=== PATIENT | female | born 1960 | race African-American/Black ===

== ENCOUNTER 2017-03-28 11:09 | Day surgery (SDC) | payer MEDICARE, MEDICAID ==
[2017-03-28] MEDS ORDERED: Nivolumab 200 MG, Nivolumab 40 MG, Admixture Fee 1 EACH in Sodium Chloride 0.9% 250 ML ... IVPB SCH (11:15)
[2017-03-28] MEDS ORDERED: Sodium Chloride 0.9% 20 ML ONE (12:12)
== END 2017-03-28 13:09 | disposition home or self-care (01) ==
LOC: ONC/OP 11:09
PROVIDERS: ATTEND Internal Medicine Hematology & Oncology
DX: Z51.11 Encounter for antineoplastic chemotherapy (principal); C34.11 Malignant neoplasm of upper lobe, right bronchus or lung; R10.31 Right lower quadrant pain; G89.29 Other chronic pain; J44.9 Chronic obstructive pulmonary disease, unspecified; Z79.52 Long term (current) use of systemic steroids; Z79.899 Other long term (current) drug therapy; Z92.3 Personal history of irradiation; Z87.891 Personal history of nicotine dependence; Z80.3 Family history of malignant neoplasm of breast; Z80.51 Family history of malignant neoplasm of kidney
CPT/HCPCS: 96413; A4216; J1642; J7050; J9299

== ENCOUNTER 2017-04-11 09:44 | Day surgery (SDC) | payer MEDICARE, MEDICAID ==
[2017-04-11] MEDS ORDERED: NIVOLUMAB IVPB SCH (10:30)
[2017-04-11] MEDS ORDERED: SODIUM CHLORIDE 0.9% IVPB SCH (10:30)
[2017-04-11] MEDS ORDERED: Sodium Chloride 0.9% 20 ML ONE (11:32)
[2017-04-11 11:35] VITALS: BP 121/58; TEMP 98.2
== END 2017-04-11 12:20 | disposition home or self-care (01) ==
LOC: ONC/OP 09:44
PROVIDERS: ATTEND Internal Medicine Hematology & Oncology
DX: Z51.11 Encounter for antineoplastic chemotherapy (principal); C34.11 Malignant neoplasm of upper lobe, right bronchus or lung; J44.9 Chronic obstructive pulmonary disease, unspecified; Z79.52 Long term (current) use of systemic steroids; Z79.899 Other long term (current) drug therapy; Z90.49 Acquired absence of other specified parts of digestive tract; Z98.890 Other specified postprocedural states; Z87.891 Personal history of nicotine dependence; Z92.3 Personal history of irradiation; Z80.51 Family history of malignant neoplasm of kidney; Z80.3 Family history of malignant neoplasm of breast
CPT/HCPCS: 96413; A4216; J1642; J7050; J9299

== ENCOUNTER 2017-05-07 08:45 | Outpatient (CLI) | payer MEDICARE, MEDICAID ==
--- NOTE | 2017-05-07 11:34 | CT ---
CT OF ABDOMEN AND PELVIS PERFORMED WITH INTRAVENOUS CONTRAST ENHANCEMENT: History: Lung cancer with brain metastases, also evidence of abdominal and pelvic lymphadenopathy. Comparison: 11-30-16, 09-11-16, 05-11-16 CTs. FINDINGS: Lung bases show chronic lung change ground glass opacity in both lung salazar with changes which may also represent air trapping are noted. There is a pleural based nodular density measuring 12 mm in s ize in the right lung base which is felt to be stable as compared to a prior exam. A small hiatal he rnia is present. The liver and spleen show no focal abnormalities. An area of decreased attenuation adjacent to the f alciform ligament, most likely on the basis of fatty change and has been seen on the previous exams as stable. In addition, there is a focus of decreased attenuation within the right lobe of the liver seen on axial image 36 and coronal image 58, measuring approximately 2.1 cm in size. It is slightly more prominent than on the previous exams although in retrospect it has been subtly present on the previous studies dating back to 05-11-16. The pancreas region is unremarkable and the gallbladder kelly s been removed. Right and left adrenal glands are normal in size and appearance. Hypodensity involving the right kid dani is stable and most compatible with a cyst. Small 5 mm retrocrural node is stable. There is a definite improvement in the aortocaval lymphadenop athy. An aortocaval node that measured in the 19 mm range on the previous examination now measures o nly 7 mm in size. There are small subcentimeter left periaortic lymph nodes. CT OF PELVIS PERFORMED WITH INTRAVENOUS CONTRAST ENHANCEMENT: The right external iliac chain lymphadenopathy seen on axial image 68 is also improved. It measures 7-8 mm in short axis dimension as compared to 13 mm on the previous study. There is a lymph node inv olving the junction of the left external and obturator chains seen on axial Image 73. It measures ap proximately 12 mm in short axis dimension as compared to 8-9 mm on the previous exam. There is no si gnificant inguinal lymphadenopathy. Review of osseous structures show no lytic or blastic bony change. IMPRESSION: 1. Overall improvement to some of the adenopathy. There has been a significant decrease in size of t he aortocaval and right external iliac chain nodes as discussed above. There is a node which is loca davey near the junction of the left obturator and external iliac chains which has increased slightly i n size from approximately 8-12 mm. 2. Chronic lung changes. A pleural based density along the right hemidiaphragm is stable in size. 3. Focus of decreased attenuation in the inferior aspect of the right lobe of the liver measuring 2. 1 cm in size. In retrospect, this area has probably been present on the previous examinations. It is more subtle on the previous exams but no definitely changed in size. POS: [facility]
[2017-05-07] MEDS ORDERED: Iopamidol 370 76% 100 ML VIAL ONE (14:17)
== END 2017-05-07 08:46 | disposition home or self-care (01) ==
LOC: CT 08:45
PROVIDERS: ATTEND Internal Medicine Hematology & Oncology
DX: C34.11 Malignant neoplasm of upper lobe, right bronchus or lung (principal); R59.0 Localized enlarged lymph nodes; J94.8 Other specified pleural conditions
CPT/HCPCS: 74177

== ENCOUNTER 2017-05-09 09:25 | Day surgery (SDC) | payer MEDICARE, MEDICAID ==
[~2017-05-09 09:25] MED LIST: Sodium Chloride 0.9% 30 ML ONE
[2017-05-09] MEDS ORDERED: NIVOLUMAB IVPB SCH (09:30)
[2017-05-09] MEDS ORDERED: SODIUM CHLORIDE 0.9% IVPB SCH (09:30)
[2017-05-09 09:43] VITALS: BP 128/59
[2017-05-09 10:02] LABS: Hematocrit 40.3 % (36.0-47.0); Mean Platelet Volume 8.3 fL (7.4-10.4); Red Blood Cell (RBC) Count 4.56 mill/uL (4.20-5.40); White Blood Cell (WBC) Count 4.9 thou/uL (4.8-10.8)
[2017-05-09 10:03] LABS: #Lymphocytes 1.2 thou/uL (1.20-3.40); #Monocytes 0.3 thou/uL (0.11-0.59); #Neutrophils 3.3 thou/uL (1.40-6.50); %Basophils 0.1 % (0.0-1.0); %Eosinophils 0.9 % (0.0-10.0); %Lymphocytes 24.8 % (21.0-51.0); %Monocytes 6.5 % (0.0-10.0)
[2017-05-09 11:53] LABS: ALT (SGPT) 8 U/L (8-55); AST (SGOT) 11 U/L (5-34); Alkaline Phosphatase 165 U/L (40-150); Anion Gap 14 mmol/L (10-20); BUN (Urea Nitrogen) 11 mg/dL (9.8-20.1); Bilirubin, Total 0.2 mg/dL (0.2-1.2); Calc. Creatinine Clearance 129 mL/min (70-130); Calcium 9.6 mg/dL (7.8-10.44); Carbon Dioxide 23 mmol/L (22-29); Chloride 103 mmol/L (98-107); Estimated GFR-MDRD Greater than 90; Globulin 4.1 g/dL (2.4-3.5); Uric Acid 6.7 mg/dL (2.6-6.0)
[2017-05-09 15:00] LABS: T4 8.7 ug/dL (4.87-11.72)
== END 2017-05-09 11:51 | disposition home or self-care (01) ==
LOC: ONC/OP 09:25
PROVIDERS: ATTEND Internal Medicine Hematology & Oncology
DX: Z51.11 Encounter for antineoplastic chemotherapy (principal); C34.11 Malignant neoplasm of upper lobe, right bronchus or lung; J44.9 Chronic obstructive pulmonary disease, unspecified; Z79.899 Other long term (current) drug therapy; Z90.49 Acquired absence of other specified parts of digestive tract; Z98.891 History of uterine scar from previous surgery; Z87.891 Personal history of nicotine dependence; Z80.3 Family history of malignant neoplasm of breast; Z80.51 Family history of malignant neoplasm of kidney
CPT/HCPCS: 80053; 84436; 84443; 84550; 85025; 96413; A4216; J1642; J7050; J9299

== ENCOUNTER 2017-05-23 10:30 | Day surgery (SDC) | payer MEDICARE, MEDICAID ==
[2017-05-23] MEDS ORDERED: Sodium Chloride 0.9% 20 ML ONE (10:49)
[2017-05-23 10:57] VITALS: BP 115/58; TEMP 98
[2017-05-23] MEDS ORDERED: Nivolumab 200 MG, Nivolumab 40 MG, Admixture Fee 1 EACH in Sodium Chloride 0.9% 250 ML ... IVPB SCH (11:00)
== END 2017-05-23 12:45 | disposition home or self-care (01) ==
LOC: ONC/OP 10:30
PROVIDERS: ATTEND Internal Medicine Hematology & Oncology
DX: Z51.11 Encounter for antineoplastic chemotherapy (principal); C34.11 Malignant neoplasm of upper lobe, right bronchus or lung; C79.31 Secondary malignant neoplasm of brain; J44.9 Chronic obstructive pulmonary disease, unspecified; Z79.52 Long term (current) use of systemic steroids; Z79.899 Other long term (current) drug therapy; Z90.49 Acquired absence of other specified parts of digestive tract; Z98.890 Other specified postprocedural states; Z92.3 Personal history of irradiation; Z87.891 Personal history of nicotine dependence
CPT/HCPCS: 96413; A4216; J1642; J7050; J9299

== ENCOUNTER 2017-06-06 07:36 | Day surgery (SDC) | payer MEDICARE, MEDICAID ==
[2017-06-06] MEDS ORDERED: Sodium Chloride 0.9% 30 ML ONE (07:42)
[2017-06-06] MEDS ORDERED: Nivolumab 200 MG, Nivolumab 40 MG, Admixture Fee 1 EACH in Sodium Chloride 0.9% 250 ML ... IVPB SCH (09:00)
[2017-06-06 09:13] VITALS: BP 135/83; TEMP 97
--- NOTE | 2017-06-06 12:18 | MRI ---
MRI BRAIN WITH AND WITHOUT IV CONTRAST: COMPARISON: 02/11/17. CLINICAL HISTORY: Brain metastases. History of lung malignancy. FINDINGS: Redemonstration of an area of encephalomalacia with gliosis and cavitation at the right frontal lobe. Overlying craniotomy is again seen as well as postoperative susceptibility artifact. Minute scatte red foci of FLAIR hyperintensity may be on the basis of minimal chronic microvascular ischemic diseas e and are grossly stable. No evidence of an enhancing intraaxial mass. Mild cerebellar tonsillar ec topia is present. Exam is grossly stable to 02/11/17 exam. IMPRESSION: Stable postoperative right frontal region. No new, interval intracranial hemostasis are present. POS: [facility]
[2017-06-06] MEDS ORDERED: Gadobenate Dimeglumine 529 MG/1 ML (20ML VIAL) ONE (14:07)
== END 2017-06-06 12:05 | disposition home or self-care (01) ==
LOC: ONC/OP 07:36
PROVIDERS: ATTEND Internal Medicine Hematology & Oncology
DX: Z51.11 Encounter for antineoplastic chemotherapy (principal); C34.11 Malignant neoplasm of upper lobe, right bronchus or lung; C79.31 Secondary malignant neoplasm of brain; J44.9 Chronic obstructive pulmonary disease, unspecified; Z79.52 Long term (current) use of systemic steroids; Z79.899 Other long term (current) drug therapy; Z95.828 Presence of other vascular implants and grafts; Z90.49 Acquired absence of other specified parts of digestive tract; Z98.890 Other specified postprocedural states; Z92.3 Personal history of irradiation; Z87.891 Personal history of nicotine dependence; Z80.51 Family history of malignant neoplasm of kidney; Z80.3 Family history of malignant neoplasm of breast
CPT/HCPCS: 70553; 96413; A4216; A9579; J1642; J7050; J9299

== ENCOUNTER 2017-06-13 00:01 | Emergency (ER) | payer MEDICARE, OTHER ==
[2017-06-13] MEDS ORDERED: Oseltamivir 75 MG CAP PO SCH (01:30)
[2017-06-13] MEDS ORDERED: Ibuprofen 800 MG TAB ONE (01:50)
[2017-06-13 02:01] LABS: #Lymphocytes 0.7 thou/uL (1.20-3.40); #Monocytes 0.6 thou/uL (0.11-0.59); #Neutrophils 4.3 thou/uL (1.40-6.50); %Basophils 0.1 % (0.0-1.0); %Eosinophils 0.6 % (0.0-10.0); %Lymphocytes 11.7 % (21.0-51.0); %Monocytes 10.6 % (0.0-10.0); Hematocrit 38.3 % (36.0-47.0); Mean Platelet Volume 8.2 fL (7.4-10.4); Red Blood Cell (RBC) Count 4.37 mill/uL (4.20-5.40); White Blood Cell (WBC) Count 5.6 thou/uL (4.8-10.8)
[2017-06-13 02:18] LABS: Lactic Acid - Sepsis 0.8 mmol/L (0.5-2.2)
[2017-06-13 02:22] LABS: ALT (SGPT) 16 U/L (8-55); AST (SGOT) 16 U/L (5-34); Alkaline Phosphatase 127 U/L (40-150); Anion Gap 12 mmol/L (10-20); BUN (Urea Nitrogen) 12 mg/dL (9.8-20.1); Bilirubin, Total 0.5 mg/dL (0.2-1.2); Calc. Creatinine Clearance 0 mL/min (70-130); Calcium 9.8 mg/dL (7.8-10.44); Carbon Dioxide 24 mmol/L (22-29); Chloride 97 mmol/L (98-107); Estimated GFR-MDRD Greater than 90; Globulin 3.8 g/dL (2.4-3.5); Protein, Total 7.8 g/dL (6.0-8.3)
[2017-06-13] MEDS ORDERED: Acetaminophen 500 MG TAB ONE (03:18)
--- NOTE | 2017-06-13 07:43 | RAD ---
PA AND LATERAL VIEWS CHEST: Date: 06/13/17 HISTORY: Productive cough and wheezing. FINDINGS/IMPRESSION: Comparison made with exam dated 10/11/11. There is a right-sided Port-A-Cath tip in the projection of the SVC. The heart size is normal. The anna marie ngs are well expanded with diffuse mild interstitial infiltrates versus pulmonary vascular congestion . No lobar consolidation, pneumothorax, or pleural effusions are seen. POS: [facility]
== END 2017-06-13 03:54 | disposition home or self-care (01) ==
LOC: ERS 00:01
DX: J11.1 Influenza due to unidentified influenza virus with other respiratory manifestations (principal); E86.0 Dehydration; Z79.891 Long term (current) use of opiate analgesic
CPT/HCPCS: 36415; 71020; 80053; 83605; 85025; 93005; 96360

== ENCOUNTER 2017-07-04 09:16 | Day surgery (SDC) | payer MEDICARE, MEDICAID ==
[2017-07-04] MEDS ORDERED: Sodium Chloride 0.9% 30 ML ONE (09:28)
[2017-07-04] MEDS ORDERED: Sterile Water 10 ML VIAL IVP SCH (09:45)
[2017-07-04] MEDS ORDERED: Activase 2 MG VIAL CATH SCH (09:45)
[2017-07-04] MEDS ORDERED: NIVOLUMAB IVPB SCH (09:45)
[2017-07-04] MEDS ORDERED: SODIUM CHLORIDE 0.9% IVPB SCH (09:45)
[2017-07-04] MEDS ORDERED: HYDROcodone/Acetaminophen 10/325 mg Tablet PO SCH (10:00)
[2017-07-04 10:13] VITALS: BP 115/55; TEMP 98.4
[2017-07-04 11:17] LABS: #Eosinphils 0.1 thou/uL (0.0-0.7); #Lymphocytes 1.2 thou/uL (1.20-3.40); #Monocytes 0.3 thou/uL (0.11-0.59); #Neutrophils 2.6 thou/uL (1.40-6.50); %Basophils 0.3 % (0.0-1.0); %Eosinophils 1.4 % (0.0-10.0); %Lymphocytes 27.9 % (21.0-51.0); %Monocytes 7.2 % (0.0-10.0); %Neutrophils 63.3 % (42.0-75.0); Hemoglobin 11.7 g/dL (12.0-16.0); Mean Corpuscular HGB CONC 31.2 g/dL (32.0-36.0); Mean Corpuscular Hemoglobin 27.7 pg (27.0-31.0); Mean Corpuscular Volume 88.9 fl (81.0-99.0); Mean Platelet Volume 7.8 fL (7.4-10.4); Platelet Count 237 thou/uL (130-400); RBC Distribution Width 15.8 % (11.5-14.5); Red Blood Cell (RBC) Count 4.21 mill/uL (4.20-5.40); White Blood Cell (WBC) Count 4.1 thou/uL (4.8-10.8)
[2017-07-04 11:44] LABS: Anisocytosis SLIGHT = 6-15 cells (100X) (0-5/hpf)
[2017-07-04 11:45] LABS: PLT Morphology Comment Appears Adequate
[2017-07-04 11:53] LABS: ALT (SGPT) 10 U/L (8-55); AST (SGOT) 11 U/L (5-34); Albumin 3.8 g/dL (3.5-5.0); Alkaline Phosphatase 136 U/L (40-150); Anion Gap 14 mmol/L (10-20); BUN (Urea Nitrogen) 19 mg/dL (9.8-20.1); Bilirubin, Total 0.3 mg/dL (0.2-1.2); Calc. Creatinine Clearance 108 mL/min (70-130); Calcium 9.8 mg/dL (7.8-10.44); Carbon Dioxide 23 mmol/L (22-29); Chloride 106 mmol/L (98-107); Estimated GFR-MDRD Greater than 90; Glucose 128 mg/dL (70-105); Potassium 3.8 mmol/L (3.5-5.1); Protein, Total 7.8 g/dL (6.0-8.3); Sodium 139 mmol/L (136-145); Uric Acid 7.7 mg/dL (2.6-6.0)
[2017-07-04 12:07] LABS: T4 9.2 ug/dL (4.87-11.72); Thyroid Stimulating Hormone 1.5738 uIU/mL (0.35-4.94)
== END 2017-07-04 11:51 | disposition home or self-care (01) ==
LOC: ONC/OP 09:16
PROVIDERS: ATTEND Internal Medicine Hematology & Oncology
DX: Z51.11 Encounter for antineoplastic chemotherapy (principal); C34.11 Malignant neoplasm of upper lobe, right bronchus or lung; J44.9 Chronic obstructive pulmonary disease, unspecified; Z79.899 Other long term (current) drug therapy; Z80.1 Family history of malignant neoplasm of trachea, bronchus and lung; Z80.3 Family history of malignant neoplasm of breast; Z80.51 Family history of malignant neoplasm of kidney; Z90.49 Acquired absence of other specified parts of digestive tract; Z98.890 Other specified postprocedural states
CPT/HCPCS: 80053; 84436; 84443; 84550; 85025; 96375; 96413; A4216; J1642; J2997; J7050; J9299

== ENCOUNTER 2017-07-25 09:37 | Day surgery (SDC) | payer MEDICARE, MEDICAID ==
[2017-07-25] MEDS ORDERED: Sodium Chloride 0.9% 20 ML ONE (09:48)
[2017-07-25] MEDS ORDERED: SODIUM CHLORIDE 0.9% IVPB SCH (10:00)
[2017-07-25] MEDS ORDERED: NIVOLUMAB IVPB SCH (10:00)
[2017-07-25 10:03] VITALS: BP 130/62; TEMP 99
== END 2017-07-25 13:49 | disposition home or self-care (01) ==
LOC: ONC/OP 09:37
PROVIDERS: ATTEND Internal Medicine Hematology & Oncology
DX: Z51.11 Encounter for antineoplastic chemotherapy (principal); C34.11 Malignant neoplasm of upper lobe, right bronchus or lung; J44.9 Chronic obstructive pulmonary disease, unspecified; Z87.891 Personal history of nicotine dependence; Z80.1 Family history of malignant neoplasm of trachea, bronchus and lung; Z80.3 Family history of malignant neoplasm of breast; Z80.51 Family history of malignant neoplasm of kidney; Z90.49 Acquired absence of other specified parts of digestive tract; Z98.890 Other specified postprocedural states
CPT/HCPCS: 96413; A4216; J1642; J7050; J9299

== ENCOUNTER 2017-08-08 08:41 | Day surgery (SDC) | payer MEDICARE, MEDICAID ==
[2017-08-08] MEDS ORDERED: Nivolumab 200 MG, Nivolumab 40 MG, Admixture Fee 1 EACH in Sodium Chloride 0.9% 250 ML ... IVPB SCH (09:00)
[2017-08-08] MEDS ORDERED: Sodium Chloride 0.9% 20 ML ONE (09:02)
[2017-08-08 10:11] VITALS: BP 131/58; TEMP 98.3
== END 2017-08-08 11:25 | disposition home or self-care (01) ==
LOC: ONC/OP 08:41
PROVIDERS: ATTEND Internal Medicine Hematology & Oncology
DX: Z51.11 Encounter for antineoplastic chemotherapy (principal); C34.11 Malignant neoplasm of upper lobe, right bronchus or lung; J44.9 Chronic obstructive pulmonary disease, unspecified; Z90.49 Acquired absence of other specified parts of digestive tract; Z98.891 History of uterine scar from previous surgery; Z80.1 Family history of malignant neoplasm of trachea, bronchus and lung; Z80.3 Family history of malignant neoplasm of breast; Z80.51 Family history of malignant neoplasm of kidney; Z87.891 Personal history of nicotine dependence
CPT/HCPCS: 96413; J1642; J7050; J9299

== ENCOUNTER 2017-09-05 09:42 | Day surgery (SDC) | payer MEDICARE, MEDICAID ==
[2017-09-05 10:09] LABS: #Eosinphils 0.1 thou/uL (0.0-0.7); #Lymphocytes 1.3 thou/uL (1.20-3.40); #Monocytes 0.3 thou/uL (0.11-0.59); #Neutrophils 2.5 thou/uL (1.40-6.50); %Basophils 0.1 % (0.0-1.0); %Eosinophils 1.3 % (0.0-10.0); %Lymphocytes 31.9 % (21.0-51.0); %Neutrophils 59.7 % (42.0-75.0); Hemoglobin 12.2 g/dL (12.0-16.0); Mean Corpuscular HGB CONC 31.1 g/dL (32.0-36.0); Mean Corpuscular Hemoglobin 27.3 pg (27.0-31.0); Mean Corpuscular Volume 87.8 fl (81.0-99.0); Mean Platelet Volume 8.2 fL (7.4-10.4); Platelet Count 204 thou/uL (130-400); RBC Distribution Width 15.9 % (11.5-14.5); Red Blood Cell (RBC) Count 4.46 mill/uL (4.20-5.40); White Blood Cell (WBC) Count 4.1 thou/uL (4.8-10.8)
[2017-09-05] MEDS ORDERED: ADMIXTURE FEE IVPB SCH (10:15)
[2017-09-05] MEDS ORDERED: SODIUM CHLORIDE IVPB SCH (10:15)
[2017-09-05] MEDS ORDERED: NIVOLUMAB IVPB SCH (10:15)
[2017-09-05] MEDS ORDERED: Sodium Chloride 0.9% 20 ML ONE (10:31)
[2017-09-05 10:50] LABS: T4 8.3 ug/dL (4.87-11.72); Thyroid Stimulating Hormone 1.8883 uIU/mL (0.35-4.94)
[2017-09-05 10:54] LABS: ALT (SGPT) 11 U/L (8-55); AST (SGOT) 11 U/L (5-34); Alkaline Phosphatase 131 U/L (40-150); Anion Gap 12 mmol/L (10-20); BUN (Urea Nitrogen) 16 mg/dL (9.8-20.1); Bilirubin, Total 0.2 mg/dL (0.2-1.2); Calc. Creatinine Clearance 123 mL/min (70-130); Calcium 9.7 mg/dL (7.8-10.44); Carbon Dioxide 26 mmol/L (22-29); Chloride 103 mmol/L (98-107); Estimated GFR-MDRD Greater than 90; Globulin 3.7 g/dL (2.4-3.5); Glucose 113 mg/dL (70-105); LDH 166 U/L (125-220); Potassium 3.8 mmol/L (3.5-5.1); Protein, Total 7.7 g/dL (6.0-8.3); Sodium 137 mmol/L (136-145); Uric Acid 6.2 mg/dL (2.6-6.0)
== END 2017-09-05 13:12 | disposition home or self-care (01) ==
LOC: ONC/OP 09:42
PROVIDERS: ATTEND Internal Medicine Hematology & Oncology
DX: Z51.11 Encounter for antineoplastic chemotherapy (principal); C34.11 Malignant neoplasm of upper lobe, right bronchus or lung; J44.9 Chronic obstructive pulmonary disease, unspecified; Z85.841 Personal history of malignant neoplasm of brain; Z87.891 Personal history of nicotine dependence; Z92.21 Personal history of antineoplastic chemotherapy; Z92.3 Personal history of irradiation
CPT/HCPCS: 80053; 83615; 84436; 84443; 84550; 85025; 96413; A4216; C9299; J1642; J7050

== ENCOUNTER 2017-09-23 07:40 | Outpatient (CLI) | payer MEDICARE, MEDICAID ==
[2017-09-23] MEDS ORDERED: Iopamidol 370 76% 100 ML VIAL ONE (09:26)
== END 2017-09-23 07:41 | disposition home or self-care (01) ==
LOC: BICCT 07:40
PROVIDERS: ATTEND Internal Medicine Hematology & Oncology
DX: C34.11 Malignant neoplasm of upper lobe, right bronchus or lung (principal); N28.1 Cyst of kidney, acquired; K76.0 Fatty (change of) liver, not elsewhere classified; R59.0 Localized enlarged lymph nodes
CPT/HCPCS: 74177

== ENCOUNTER 2017-10-03 09:34 | Day surgery (SDC) | payer MEDICARE, MEDICAID ==
[2017-10-03] MEDS ORDERED: Sodium Chloride 0.9% 20 ML ONE (09:42)
[2017-10-03 09:58] VITALS: BP 113/53; TEMP 98.4
[2017-10-03] MEDS ORDERED: ADMIXTURE FEE IVPB SCH (10:00)
[2017-10-03] MEDS ORDERED: SODIUM CHLORIDE IVPB SCH (10:00)
[2017-10-03] MEDS ORDERED: NIVOLUMAB IVPB SCH (10:00)
== END 2017-10-03 12:42 | disposition home or self-care (01) ==
LOC: ONC/OP 09:34
PROVIDERS: ATTEND Internal Medicine Hematology & Oncology
DX: Z51.11 Encounter for antineoplastic chemotherapy (principal); C34.11 Malignant neoplasm of upper lobe, right bronchus or lung; J44.9 Chronic obstructive pulmonary disease, unspecified; Z98.890 Other specified postprocedural states; Z80.3 Family history of malignant neoplasm of breast; Z80.51 Family history of malignant neoplasm of kidney
CPT/HCPCS: 96413; A4216; J1642; J7050; J9299

== ENCOUNTER 2017-10-17 10:02 | Day surgery (SDC) | payer MEDICARE, MEDICAID ==
[2017-10-17] MEDS ORDERED: Sodium Chloride 0.9% 20 ML ONE (10:55)
[2017-10-17] MEDS ORDERED: ADMIXTURE FEE IVPB SCH (11:00)
[2017-10-17] MEDS ORDERED: NIVOLUMAB IVPB SCH (11:00)
[2017-10-17] MEDS ORDERED: SODIUM CHLORIDE IVPB SCH (11:00)
[2017-10-17] MEDS ORDERED: Sterile Water 10 ML VIAL IVP SCH (12:15)
[2017-10-17] MEDS ORDERED: Activase 2 MG VIAL CATH SCH (12:15)
[2017-10-17 13:16] VITALS: BP 127/60; TEMP 98.7
[2017-10-17] MEDS ORDERED: Iopamidol 300 61% 50 ML VIAL FS ONE (13:47)
--- NOTE | 2017-10-17 15:43 | RAD ---
FLUOROSCOPIC GUIDED MEDIPORT CHECK 10/17/17 HISTORY: Patient receiving chemotherapy, but access of the Mediport catheter is painful and there is swelling around the Mediport. No blood return is present upon access of the Mediport catheter. TECHNIQUE: Patient was placed on the angiography table in the supine position. Mediport catheter was accessed pr ior to this exam. Attempts at aspiration were unsuccessful. Saline was injected with free flow, but p atient did note tenderness and pressure sensation with injection. A sterile contrast filled syringe w as connected to the intravenous tubing, and contrast was injected. Imaging demonstrates that the Medi port catheter is intact. The reservoir fills with contrast, and there is no extravasation of contrast seen from either the reservoir or from the Mediport catheter. The tip overlies the distal SVC. Injec tion of contrast demonstrates contrast along and surrounding distal portion of the catheter most sugg estive of a fibrin sheath. Approximately 10 mL of contrast was injected. The catheter was then flushed with heparinized saline. The patient tolerated the procedure well witho ut immediate complication. [employer] chest x-ray demonstrates increased density in the right hilar region with associated linear den sities which may be related to postradiation changes. Additional chronic interstitial lung changes ar e seen bilaterally. IMPRESSION: 1. Fibrin sheath surrounding the distal portion of the right subclavian Mediport catheter. There is no extravasation of contrast present. 2. Chronic lung changes with probable post radiation changes along the medial aspect right hemit horax. POS: [facility]
== END 2017-10-17 17:21 | disposition home or self-care (01) ==
LOC: ONC/OP 10:02
PROVIDERS: ATTEND Internal Medicine Hematology & Oncology
PROC: 0JWT3WZ Revision of Totally Implantable Vascular Access Device in Trunk Subcutaneous Tissue and Fascia, Percutaneous Approach (ICD-10-PCS; principal; 2017-10-17)
DX: Z51.11 Encounter for antineoplastic chemotherapy (principal); C34.11 Malignant neoplasm of upper lobe, right bronchus or lung; J44.9 Chronic obstructive pulmonary disease, unspecified; T82.848A Pain due to vascular prosthetic devices, implants and grafts, initial encounter; T82.898A Other specified complication of vascular prosthetic devices, implants and grafts, initial encounter; Z87.891 Personal history of nicotine dependence; Z79.899 Other long term (current) drug therapy
CPT/HCPCS: 36598; 96413; 99211; A4216; G0463; J1642; J2997; J7050; J9299

== ENCOUNTER 2017-11-07 09:39 | Day surgery (SDC) | payer MEDICARE, MEDICAID ==
[2017-11-07] MEDS ORDERED: Sodium Chloride 0.9% 40 ML ONE (09:49)
[2017-11-07] MEDS ORDERED: NIVOLUMAB IVPB SCH (10:00)
[2017-11-07] MEDS ORDERED: SODIUM CHLORIDE IVPB SCH (10:00)
[2017-11-07] MEDS ORDERED: ADMIXTURE FEE IVPB SCH (10:00)
[2017-11-07] MEDS ORDERED: Activase 2 MG VIAL CATH SCH (10:15)
[2017-11-07 11:08] VITALS: BP 129/60; TEMP 98.8
[2017-11-07 11:25] LABS: #Eosinphils 0.1 thou/uL (0.0-0.7); #Lymphocytes 1.4 thou/uL (1.20-3.40); #Monocytes 0.3 thou/uL (0.11-0.59); %Basophils 0.5 % (0.0-1.0); %Eosinophils 1.5 % (0.0-10.0); %Lymphocytes 29.5 % (21.0-51.0); %Monocytes 5.9 % (0.0-10.0); %Neutrophils 62.6 % (42.0-75.0); Hemoglobin 12.4 g/dL (12.0-16.0); Mean Corpuscular HGB CONC 32.1 g/dL (32.0-36.0); Mean Corpuscular Hemoglobin 27.8 pg (27.0-31.0); Mean Corpuscular Volume 86.6 fl (81.0-99.0); Mean Platelet Volume 8.3 fL (7.4-10.4); Platelet Count 218 thou/uL (130-400); RBC Distribution Width 16.4 % (11.5-14.5); Red Blood Cell (RBC) Count 4.47 mill/uL (4.20-5.40); White Blood Cell (WBC) Count 4.7 thou/uL (4.8-10.8)
[2017-11-07 11:48] LABS: ALT (SGPT) 11 U/L (8-55); AST (SGOT) 12 U/L (5-34); Alkaline Phosphatase 139 U/L (40-150); Anion Gap 11 mmol/L (10-20); BUN (Urea Nitrogen) 14 mg/dL (9.8-20.1); Bilirubin, Total 0.3 mg/dL (0.2-1.2); Calc. Creatinine Clearance 122 mL/min (70-130); Calcium 9.6 mg/dL (7.8-10.44); Carbon Dioxide 27 mmol/L (22-29); Chloride 104 mmol/L (98-107); Estimated GFR-MDRD Greater than 90; Globulin 3.6 g/dL (2.4-3.5); Glucose 113 mg/dL (70-105); Potassium 3.9 mmol/L (3.5-5.1); Protein, Total 7.6 g/dL (6.0-8.3); Sodium 138 mmol/L (136-145); Uric Acid 7.4 mg/dL (2.6-6.0)
[2017-11-07 15:29] LABS: T4 7.8 ug/dL (4.87-11.72); Thyroid Stimulating Hormone 1.1292 uIU/mL (0.35-4.94)
== END 2017-11-07 12:46 | disposition home or self-care (01) ==
LOC: ONC/OP 09:39
PROVIDERS: ATTEND Internal Medicine Hematology & Oncology
DX: Z51.11 Encounter for antineoplastic chemotherapy (principal); C34.11 Malignant neoplasm of upper lobe, right bronchus or lung; R11.2 Nausea with vomiting, unspecified; E53.8 Deficiency of other specified B group vitamins; J44.9 Chronic obstructive pulmonary disease, unspecified
CPT/HCPCS: 80053; 84436; 84443; 84550; 85025; 96413; A4216; J1642; J2997; J7050; J9299

== ENCOUNTER 2017-12-05 09:53 | Day surgery (SDC) | payer MEDICARE, MEDICAID ==
[2017-12-05] MEDS ORDERED: Sodium Chloride 0.9% 30 ML ONE (10:41)
[2017-12-05] MEDS ORDERED: NIVOLUMAB IVPB SCH ×2 (10:45→12:45)
[2017-12-05] MEDS ORDERED: SODIUM CHLORIDE 0.9% IVPB SCH (10:45)
[2017-12-05 11:03] LABS: #Eosinphils 0.1 thou/uL (0.0-0.7); #Lymphocytes 1.4 thou/uL (1.20-3.40); #Monocytes 0.3 thou/uL (0.11-0.59); #Neutrophils 2.3 thou/uL (1.40-6.50); %Basophils 0.9 % (0.0-1.0); %Eosinophils 1.8 % (0.0-10.0); %Lymphocytes 33.4 % (21.0-51.0); %Monocytes 6.6 % (0.0-10.0); %Neutrophils 57.4 % (42.0-75.0); Hemoglobin 12.5 g/dL (12.0-16.0); Mean Corpuscular HGB CONC 32.2 g/dL (32.0-36.0); Mean Corpuscular Hemoglobin 28.1 pg (27.0-31.0); Mean Corpuscular Volume 87.2 fl (81.0-99.0); Mean Platelet Volume 8.9 fL (7.4-10.4); Platelet Count 186 thou/uL (130-400); RBC Distribution Width 16.2 % (11.5-14.5); Red Blood Cell (RBC) Count 4.45 mill/uL (4.20-5.40); White Blood Cell (WBC) Count 4.1 thou/uL (4.8-10.8)
[2017-12-05 11:39] LABS: ALT (SGPT) 9 U/L (8-55); AST (SGOT) 11 U/L (5-34); Albumin 4.1 g/dL (3.5-5.0); Alkaline Phosphatase 129 U/L (40-150); Anion Gap 12 mmol/L (10-20); BUN (Urea Nitrogen) 15 mg/dL (9.8-20.1); Bilirubin, Total 0.3 mg/dL (0.2-1.2); Calc. Creatinine Clearance 0 mL/min (70-130); Calcium 9.5 mg/dL (7.8-10.44); Carbon Dioxide 25 mmol/L (22-29); Chloride 104 mmol/L (98-107); Estimated GFR-MDRD Greater than 90; Globulin 3.5 g/dL (2.4-3.5); Glucose 97 mg/dL (70-105); LDH 173 U/L (125-220); Potassium 4.1 mmol/L (3.5-5.1); Protein, Total 7.6 g/dL (6.0-8.3); Sodium 137 mmol/L (136-145); Uric Acid 6.5 mg/dL (2.6-6.0)
[2017-12-05 11:54] LABS: Thyroid Stimulating Hormone 1.3809 uIU/mL (0.35-4.94)
[2017-12-05] MEDS ORDERED: [UNRECOGNIZED DRUG - OTHER] IVPB SCH (12:45)
== END 2017-12-05 14:07 | disposition home or self-care (01) ==
LOC: ONC/OP 09:53
PROVIDERS: ATTEND Internal Medicine Hematology & Oncology
DX: Z51.11 Encounter for antineoplastic chemotherapy (principal); C34.11 Malignant neoplasm of upper lobe, right bronchus or lung; E53.8 Deficiency of other specified B group vitamins; J44.9 Chronic obstructive pulmonary disease, unspecified; R11.2 Nausea with vomiting, unspecified; Z87.891 Personal history of nicotine dependence
CPT/HCPCS: 80053; 83615; 84436; 84443; 84550; 85025; 96413; A4216; J1642; J7050; J9299

== ENCOUNTER 2018-01-02 09:42 | Day surgery (SDC) | payer MEDICARE, MEDICAID ==
[2018-01-02] MEDS ORDERED: Sodium Chloride 0.9% 20 ML ONE (09:50)
[2018-01-02] MEDS ORDERED: SODIUM CHLORIDE 0.9% IVPB SCH ×2 (10:00→10:15)
[2018-01-02] MEDS ORDERED: NIVOLUMAB IVPB SCH ×2 (10:00→10:15)
[2018-01-02 10:22] LABS: Mean Corpuscular HGB CONC 32.6 g/dL (32.0-36.0); Mean Corpuscular Volume 85.8 fL (78.0-98.0); RBC Distribution Width 16.4 % (11.5-14.5); Red Blood Cell (RBC) Count 4.64 mill/uL (4.20-5.40)
[2018-01-02 10:23] LABS: Platelet Count 204 thou/uL (130-400)
[2018-01-02 10:24] LABS: #Basophils 0.1 thou/uL (0.0-0.2); #Eosinphils 0.1 thou/uL (0.0-0.7); #Lymphocytes 1.2 thou/uL (1.20-3.40); #Monocytes 0.3 thou/uL (0.11-0.59); #Neutrophils 2.4 thou/uL (1.40-6.50); %Basophils 1.5 % (0.0-1.0); %Eosinophils 2.1 % (0.0-10.0); %Lymphocytes 29.7 % (21.0-51.0); %Monocytes 6.9 % (0.0-10.0); %Neutrophils 59.7 % (42.0-75.0); Mean Platelet Volume 8.6 fL (7.4-10.4)
[2018-01-02 11:01] VITALS: BP 120/57; TEMP 98.4
[2018-01-02 12:12] LABS: ALT (SGPT) 11 U/L (8-55); AST (SGOT) 12 U/L (5-34); Albumin 4.3 g/dL (3.5-5.0); Alkaline Phosphatase 155 U/L (40-150); Anion Gap 11 mmol/L (10-20); BUN (Urea Nitrogen) 17 mg/dL (9.8-20.1); Bilirubin, Total 0.3 mg/dL (0.2-1.2); Calc. Creatinine Clearance 111 mL/min (70-130); Calcium 9.8 mg/dL (7.8-10.44); Carbon Dioxide 25 mmol/L (22-29); Chloride 104 mmol/L (98-107); Estimated GFR-MDRD Greater than 90; Globulin 3.5 g/dL (2.4-3.5); Glucose 143 mg/dL (70-105); LDH 176 U/L (125-220); Potassium 3.9 mmol/L (3.5-5.1); Protein, Total 7.8 g/dL (6.0-8.3); Sodium 136 mmol/L (136-145); Uric Acid 7.2 mg/dL (2.6-6.0)
== END 2018-01-02 13:55 | disposition home or self-care (01) ==
LOC: ONC/OP 09:42
PROVIDERS: ATTEND Internal Medicine Hematology & Oncology
DX: Z51.11 Encounter for antineoplastic chemotherapy (principal); C34.11 Malignant neoplasm of upper lobe, right bronchus or lung; E53.8 Deficiency of other specified B group vitamins; J44.9 Chronic obstructive pulmonary disease, unspecified; R11.2 Nausea with vomiting, unspecified; Z87.891 Personal history of nicotine dependence
CPT/HCPCS: 80053; 83615; 84550; 85025; 96413; A4216; J1642; J7050; J9299

== ENCOUNTER 2018-01-28 07:55 | Outpatient (CLI) | payer MEDICARE, MEDICAID ==
[~2018-01-28 07:55] MED LIST changes: +ISOVUE-370 76%-LOCM 1 ML ONE; -Sodium Chloride 0.9% 30 ML ONE
== END 2018-01-28 07:56 | disposition home or self-care (01) ==
LOC: BICCT 07:55
PROVIDERS: ATTEND Internal Medicine Hematology & Oncology
DX: C34.11 Malignant neoplasm of upper lobe, right bronchus or lung (principal); R59.0 Localized enlarged lymph nodes; N28.1 Cyst of kidney, acquired
CPT/HCPCS: 74177

== ENCOUNTER 2018-01-30 09:42 | Day surgery (SDC) | payer MEDICARE, MEDICAID ==
[2018-01-30] MEDS ORDERED: Sodium Chloride 0.9% 30 ML ONE (09:48)
[2018-01-30] MEDS ORDERED: NIVOLUMAB IVPB SCH (10:00)
[2018-01-30] MEDS ORDERED: SODIUM CHLORIDE 0.9% IVPB SCH (10:00)
[2018-01-30 10:04] VITALS: BP 114/71; TEMP 98.1
[2018-01-30 10:16] LABS: #Eosinphils 0.1 thou/uL (0.0-0.7); #Lymphocytes 1.4 thou/uL (1.20-3.40); #Monocytes 0.3 thou/uL (0.11-0.59); #Neutrophils 2.6 thou/uL (1.40-6.50); %Basophils 0.8 % (0.0-1.0); %Eosinophils 2.3 % (0.0-10.0); %Lymphocytes 31.6 % (21.0-51.0); %Monocytes 5.9 % (0.0-10.0); %Neutrophils 59.5 % (42.0-75.0); Hemoglobin 13.1 g/dL (12.0-16.0); Mean Corpuscular HGB CONC 32.7 g/dL (32.0-36.0); Mean Corpuscular Hemoglobin 28.5 pg (27.0-31.0); Mean Corpuscular Volume 87.1 fL (78.0-98.0); Mean Platelet Volume 8.4 fL (7.4-10.4); Platelet Count 211 thou/uL (130-400); RBC Distribution Width 16.6 % (11.5-14.5); Red Blood Cell (RBC) Count 4.61 mill/uL (4.20-5.40); White Blood Cell (WBC) Count 4.3 thou/uL (4.8-10.8)
[2018-01-30 10:34] LABS: ALT (SGPT) 9 U/L (8-55); AST (SGOT) 11 U/L (5-34); Albumin 4.3 g/dL (3.5-5.0); Alkaline Phosphatase 139 U/L (40-150); Anion Gap 13 mmol/L (10-20); BUN (Urea Nitrogen) 17 mg/dL (9.8-20.1); Bilirubin, Total 0.3 mg/dL (0.2-1.2); Calc. Creatinine Clearance 111 mL/min (70-130); Calcium 10.1 mg/dL (7.8-10.44); Carbon Dioxide 25 mmol/L (22-29); Chloride 105 mmol/L (98-107); Estimated GFR-MDRD Greater than 90; Globulin 3.6 g/dL (2.4-3.5); Glucose 111 mg/dL (70-105); LDH 160 U/L (125-220); Potassium 4.3 mmol/L (3.5-5.1); Protein, Total 7.9 g/dL (6.0-8.3); Sodium 139 mmol/L (136-145); Uric Acid 7.6 mg/dL (2.6-6.0)
== END 2018-01-30 12:51 | disposition home or self-care (01) ==
LOC: ONC/OP 09:42
PROVIDERS: ATTEND Internal Medicine Hematology & Oncology
DX: Z51.11 Encounter for antineoplastic chemotherapy (principal); C34.11 Malignant neoplasm of upper lobe, right bronchus or lung; J44.9 Chronic obstructive pulmonary disease, unspecified; Z79.899 Other long term (current) drug therapy
CPT/HCPCS: 80053; 83615; 84550; 85025; 96413; A4216; J1642; J7050; J9299

== ENCOUNTER 2018-02-27 09:09 | Day surgery (SDC) | payer MEDICARE, MEDICAID ==
[2018-02-27] MEDS ORDERED: Sodium Chloride 0.9% 30 ML ONE (09:18)
[2018-02-27] MEDS ORDERED: NIVOLUMAB IVPB SCH (09:30)
[2018-02-27] MEDS ORDERED: SODIUM CHLORIDE 0.9% IVPB SCH (09:30)
[2018-02-27] MEDS ORDERED: Activase 2 MG VIAL CATH SCH (09:45)
[2018-02-27 10:20] VITALS: BP 126/59; TEMP 99.2
[2018-02-27 11:16] LABS: #Eosinphils 0.1 thou/uL (0.0-0.7); #Lymphocytes 1.6 thou/uL (1.20-3.40); #Monocytes 0.3 thou/uL (0.11-0.59); #Neutrophils 2.6 thou/uL (1.40-6.50); %Basophils 0.2 % (0.0-1.0); %Eosinophils 1.9 % (0.0-10.0); %Lymphocytes 35.2 % (21.0-51.0); %Monocytes 6.8 % (0.0-10.0); %Neutrophils 55.9 % (42.0-75.0); Hemoglobin 12.5 g/dL (12.0-16.0); Mean Corpuscular HGB CONC 32.1 g/dL (32.0-36.0); Mean Corpuscular Hemoglobin 28.1 pg (27.0-31.0); Mean Corpuscular Volume 87.5 fL (78.0-98.0); Mean Platelet Volume 9.2 fL (7.4-10.4); Platelet Count 216 thou/uL (130-400); RBC Distribution Width 16.9 % (11.5-14.5); Red Blood Cell (RBC) Count 4.45 mill/uL (4.20-5.40); White Blood Cell (WBC) Count 4.6 thou/uL (4.8-10.8)
[2018-02-27 11:37] LABS: ALT (SGPT) 10 U/L (8-55); AST (SGOT) 11 U/L (5-34); Alkaline Phosphatase 126 U/L (40-150); Anion Gap 12 mmol/L (10-20); BUN (Urea Nitrogen) 10 mg/dL (9.8-20.1); Bilirubin, Total 0.5 mg/dL (0.2-1.2); Calc. Creatinine Clearance 0 mL/min (70-130); Calcium 9.4 mg/dL (7.8-10.44); Carbon Dioxide 26 mmol/L (22-29); Chloride 104 mmol/L (98-107); Estimated GFR-MDRD Greater than 90; Globulin 3.5 g/dL (2.4-3.5); Glucose 98 mg/dL (70-105); LDH 158 U/L (125-220); Protein, Total 7.5 g/dL (6.0-8.3); Sodium 138 mmol/L (136-145)
[2018-02-27 11:56] LABS: T4 8.3 ug/dL (4.87-11.72); Thyroid Stimulating Hormone 1.3744 uIU/mL (0.35-4.94)
== END 2018-02-27 13:36 | disposition home or self-care (01) ==
LOC: ONC/OP 09:09
PROVIDERS: ATTEND Internal Medicine Hematology & Oncology
DX: Z51.11 Encounter for antineoplastic chemotherapy (principal); C34.11 Malignant neoplasm of upper lobe, right bronchus or lung
CPT/HCPCS: 80053; 83615; 84436; 84443; 84550; 85025; 96375; 96413; A4216; J1642; J2997; J7050; J9299

== ENCOUNTER 2018-03-27 09:16 | Day surgery (SDC) | payer MEDICARE, MEDICAID ==
[2018-03-27] MEDS ORDERED: Sodium Chloride 0.9% 30 ML ONE (09:25)
[2018-03-27] MEDS ORDERED: NIVOLUMAB IVPB SCH (09:45)
[2018-03-27] MEDS ORDERED: SODIUM CHLORIDE 0.9% IVPB SCH (09:45)
[2018-03-27 10:09] LABS: #Eosinphils 0.1 thou/uL (0.0-0.7); #Lymphocytes 1.3 thou/uL (1.20-3.40); #Monocytes 0.3 thou/uL (0.11-0.59); #Neutrophils 2.4 thou/uL (1.40-6.50); %Eosinophils 3.4 % (0.0-10.0); %Lymphocytes 31.2 % (21.0-51.0); %Monocytes 6.4 % (0.0-10.0); Hemoglobin 12.4 g/dL (12.0-16.0); Mean Corpuscular HGB CONC 31.4 g/dL (32.0-36.0); Mean Corpuscular Hemoglobin 27.8 pg (27.0-31.0); Mean Corpuscular Volume 88.5 fL (78.0-98.0); Mean Platelet Volume 9.8 fL (7.4-10.4); Platelet Count 205 thou/uL (130-400); Red Blood Cell (RBC) Count 4.47 mill/uL (4.20-5.40); White Blood Cell (WBC) Count 4.1 thou/uL (4.8-10.8)
[2018-03-27 10:30] VITALS: BP 117/58; TEMP 98
[2018-03-27 11:27] LABS: ALT (SGPT) 7 U/L (8-55); AST (SGOT) 12 U/L (5-34); Alkaline Phosphatase 115 U/L (40-150); Anion Gap 10 mmol/L (10-20); BUN (Urea Nitrogen) 21 mg/dL (9.8-20.1); Bilirubin, Total 0.3 mg/dL (0.2-1.2); Calc. Creatinine Clearance 106 mL/min (70-130); Calcium 9.8 mg/dL (7.8-10.44); Carbon Dioxide 27 mmol/L (22-29); Chloride 106 mmol/L (98-107); Estimated GFR-MDRD Greater than 90; Globulin 3.8 g/dL (2.4-3.5); Glucose 129 mg/dL (70-105); LDH 185 U/L (125-220); Potassium 3.9 mmol/L (3.5-5.1); Protein, Total 7.8 g/dL (6.0-8.3); Sodium 139 mmol/L (136-145); Uric Acid 6.6 mg/dL (2.6-6.0)
== END 2018-03-27 14:30 | disposition home or self-care (01) ==
LOC: ONC/OP 09:16
PROVIDERS: ATTEND Internal Medicine Hematology & Oncology
DX: Z51.11 Encounter for antineoplastic chemotherapy (principal); C34.11 Malignant neoplasm of upper lobe, right bronchus or lung; J44.9 Chronic obstructive pulmonary disease, unspecified; Z87.891 Personal history of nicotine dependence; Z79.899 Other long term (current) drug therapy
CPT/HCPCS: 80053; 83615; 84550; 85025; 90471; 90686; 96372; 96413; A4216; G0008; J1642; J7050; J9299

== ENCOUNTER 2018-05-01 10:04 | Day surgery (SDC) | payer MEDICARE, MEDICAID ==
[2018-05-01] MEDS ORDERED: Sodium Chloride 0.9% 20 ML ONE (10:48)
[2018-05-01] MEDS ORDERED: SODIUM CHLORIDE 0.9% IVPB SCH (11:00)
[2018-05-01] MEDS ORDERED: NIVOLUMAB IVPB SCH (11:00)
[2018-05-01 11:27] VITALS: BP 112/65; TEMP 98.4
== END 2018-05-01 12:47 | disposition home or self-care (01) ==
LOC: ONC/OP 10:04
PROVIDERS: ATTEND Internal Medicine Hematology & Oncology
DX: Z51.11 Encounter for antineoplastic chemotherapy (principal); C34.11 Malignant neoplasm of upper lobe, right bronchus or lung; J44.9 Chronic obstructive pulmonary disease, unspecified; Z87.891 Personal history of nicotine dependence; Z79.899 Other long term (current) drug therapy
CPT/HCPCS: 96413; J1642; J7050; J9299

== ENCOUNTER 2018-05-29 10:03 | Day surgery (SDC) | payer MEDICARE, MEDICAID ==
[2018-05-29] MEDS ORDERED: Sodium Chloride 0.9% 20 ML ONE (10:10)
[2018-05-29] MEDS ORDERED: NIVOLUMAB IVPB SCH (10:15)
[2018-05-29] MEDS ORDERED: SODIUM CHLORIDE 0.9% IVPB SCH (10:15)
[2018-05-29] MEDS ORDERED: Sodium Chloride 0.9% 30 ML ONE (10:20)
[2018-05-29 10:26] VITALS: BP 131/68; TEMP 98.3
[2018-05-29 11:28] LABS: #Eosinphils 0.1 thou/uL (0.0-0.7); #Lymphocytes 1.5 thou/uL (1.20-3.40); #Monocytes 0.2 thou/uL (0.11-0.59); #Neutrophils 2.5 thou/uL (1.40-6.50); %Basophils 0.9 % (0.0-1.0); %Eosinophils 3.3 % (0.0-10.0); %Lymphocytes 34.3 % (21.0-51.0); %Monocytes 4.8 % (0.0-10.0); %Neutrophils 56.7 % (42.0-75.0); Hemoglobin 13.2 g/dL (12.0-16.0); Mean Corpuscular HGB CONC 31.8 g/dL (32.0-36.0); Mean Corpuscular Hemoglobin 27.9 pg (27.0-31.0); Mean Corpuscular Volume 87.7 fL (78.0-98.0); Mean Platelet Volume 9.3 fL (7.4-10.4); Platelet Count 242 thou/uL (130-400); RBC Distribution Width 17.1 % (11.5-14.5); Red Blood Cell (RBC) Count 4.72 mill/uL (4.20-5.40); White Blood Cell (WBC) Count 4.4 thou/uL (4.8-10.8)
[2018-05-29 12:03] LABS: ALT (SGPT) Less than 7 U/L (8-55); AST (SGOT) 11 U/L (5-34); Alkaline Phosphatase 135 U/L (40-150); Anion Gap 10 mmol/L (10-20); BUN (Urea Nitrogen) 17 mg/dL (9.8-20.1); Bilirubin, Total 0.3 mg/dL (0.2-1.2); Calc. Creatinine Clearance 110 mL/min (70-130); Calcium 9.6 mg/dL (7.8-10.44); Carbon Dioxide 26 mmol/L (22-29); Chloride 102 mmol/L (98-107); Estimated GFR-MDRD Greater than 90; Globulin 3.8 g/dL (2.4-3.5); Glucose 136 mg/dL (70-105); LDH 179 U/L (125-220); Potassium 4.1 mmol/L (3.5-5.1); Protein, Total 7.8 g/dL (6.0-8.3); Sodium 134 mmol/L (136-145); Uric Acid 6.9 mg/dL (2.6-6.0)
[2018-05-29 12:13] LABS: T4 8.6 ug/dL (4.87-11.72); Thyroid Stimulating Hormone 0.7268 uIU/mL (0.35-4.94)
--- NOTE | 2018-05-29 13:07 | ULT ---
FOCUS ULTRASOUND OF THE RIGHT CHEST WALL: Date: 05-29-18 Comparison: None. History: Puffiness in the chest wall around the Mediport, difficulty accessing Mediport. FINDINGS: Focused ultrasound is obtained over the Mediport reservoir in the right chest wall region. There is s hadowing associated with the Mediport reservoir itself. The soft tissues lateral to, medial to, and a nterior to the Mediport reservoir demonstrate no fluid collection. The soft tissues deep to the reser voir cannot be assessed secondary to shadowing. IMPRESSION: Imaged soft tissues around the Mediport appear grossly unremarkable, as detailed above. POS: [facility]
== END 2018-05-29 17:58 | disposition home or self-care (01) ==
LOC: ONC/OP 10:03
PROVIDERS: ATTEND Internal Medicine Hematology & Oncology
DX: Z51.11 Encounter for antineoplastic chemotherapy (principal); C34.11 Malignant neoplasm of upper lobe, right bronchus or lung
CPT/HCPCS: 80053; 83615; 84436; 84443; 84550; 85025; 96413; J1642; J7050; J9299

== ENCOUNTER 2018-06-30 08:48 | Day surgery (SDC) | payer MEDICARE, MEDICAID ==
[2018-06-30] MEDS ORDERED: Sodium Chloride 0.9% 40 ML ONE (09:13)
[2018-06-30] MEDS ORDERED: NIVOLUMAB IVPB SCH (09:15)
[2018-06-30] MEDS ORDERED: SODIUM CHLORIDE 0.9% IVPB SCH (09:15)
[2018-06-30 09:32] VITALS: BP 120/57; TEMP 98.8
== END 2018-06-30 11:50 | disposition home or self-care (01) ==
LOC: ONC/OP 08:48
PROVIDERS: ATTEND Internal Medicine Hematology & Oncology
DX: Z51.11 Encounter for antineoplastic chemotherapy (principal); C34.11 Malignant neoplasm of upper lobe, right bronchus or lung; J44.9 Chronic obstructive pulmonary disease, unspecified; Z87.891 Personal history of nicotine dependence; Z79.52 Long term (current) use of systemic steroids; Z79.899 Other long term (current) drug therapy
CPT/HCPCS: 96413; J1642; J7050; J9299

== ENCOUNTER 2018-08-07 09:49 | Outpatient (CLI) | payer MEDICARE, MEDICAID ==
--- NOTE | 2018-08-07 15:10 | PET ---
PET CT: HISTORY: 58-year-old female with right lung cancer. Patient undergoing chemotherapy. Exam requested for restag ing. TECHNIQUE: PET scanning with CT attenuation correction was performed from the base of the brain through the prox imal thighs following the intravenous administration of 12 mCi F18-FDG in the right antecubital fossa . COMPARISON: 02/25/18. FINDINGS: There has been interval development of a hypermetabolic 14 mm left apical lung nodule with a SUV of 4 .2. No aristeo hypermetabolism is seen in the neck, chest, axilla, abdomen, or pelvis. No hypermetabolic li valeriano, adrenal, or skeletal lesions are seen. There is mild patchy tracer uptake in the posteromedial aspect of the right lung with stable SUV of 2 .7 consistent with post radiation changes. The CT scan used for attenuation correction demonstrates no evidence of pleural effusions or ascites. IMPRESSION: Interval development of hypermetabolic 14 mm left apical lung nodule since 02/25/18, suspicious for m alignancy/metastatic disease. POS: [facility]
== END 2018-08-07 09:50 | disposition home or self-care (01) ==
LOC: PET 09:49
PROVIDERS: ATTEND Internal Medicine Hematology & Oncology
DX: C34.91 Malignant neoplasm of unspecified part of right bronchus or lung (principal); R91.1 Solitary pulmonary nodule
CPT/HCPCS: 78815; A9552

== ENCOUNTER 2018-10-30 10:21 | Outpatient (CLI) | payer MEDICARE, MEDICAID ==
--- NOTE | 2018-10-30 14:05 | PET ---
EXAM: PET/CT HISTORY: Lung cancer TECHNIQUE: PET scanning with CT attenuation correction was performed from the base of the brain to the proximal thighs following the intravenous administration of 11.6 millicuries [id number]. COMPARISON: PET/CT dated 08/07/2018 and 02/25/2018 FINDINGS: Biodistribution:The biodistribution for the exam appears acceptable. Head and neck: There is appropriate background activity within the brain. Again seen is some hypermet abolic activity involving the upper neck in the region of the posterior nasopharynx tongue base and palatine tonsils. Thorax: The hypermetabolic pulmonary nodule within the left upper lobe has increased in size and hype rmetabolic uptake now measuring 2.0 x 1.3 cm with a peak SUV activity of 5.12. This previously had a peak SUV activity of 2.63 and measured 1.4 x 1.3 cm. The radiation fibrosis change involving the ri ght lung along the mediastinum appears similar. Scattered emphysema is similar. No new hypermetabolic pulmonary nodules or lymphadenopathy is evident. There is some background metabolic ac tivity seen within the blood pool of the mediastinum. There are scattered calcifications involving coronary arteries and thoracic aorta. Abdomen and pelvis: There is expected background activity within the GI and systems.There is a mil dly hypermetabolic left external iliac lymph node measuring 0.7 cm, unchanged in size and appearance to the prior exams. No additional hypermetabolic mass or lymphadenopathy is evident. Osseous structures and skin: No hypermetabolic skin or osseous lesion is identified. IMPRESSION: 1. Enlarging left upper lobe pulmonary nodule with increased metabolic uptake is suspicious for worse sally metastatic disease to the left upper lobe. 2. Mildly hypermetabolic left external iliac iliac lymph node is stable in size and appearance to the comparison examinations and may be reactive in nature. Continued PET follow-up is recommended. 3. Mild activity seen in the region of the upper neck, near the nasopharynx, tongue base and palatine tonsils may be related to inflammatory change. Recommend correlation with the clinical exam for any symptoms and signs of an upper respiratory tract infection. Direct visualization is recommended.
== END 2018-10-30 10:22 | disposition home or self-care (01) ==
LOC: PET 10:21
PROVIDERS: ATTEND Internal Medicine Hematology & Oncology
DX: C34.90 Malignant neoplasm of unspecified part of unspecified bronchus or lung (principal); R91.1 Solitary pulmonary nodule; R94.8 Abnormal results of function studies of other organs and systems
CPT/HCPCS: 78815; A9552

== ENCOUNTER 2019-01-22 09:03 | Outpatient (CLI) | payer MEDICARE, MEDICAID ==
--- NOTE | 2019-01-22 14:56 | PET ---
PET SCAN WITH CT ATTENUATION CORRECTION: HISTORY: right lung cancer, prior treatment. Left lung nodule. COMPARISON: 10/30/18. CORRELATION; PET imaging report dated 08/07/18. TECHNIQUE: PET scanning with CT attenuation correction is performed from the base of the brain to the proximal t highs following the intravenous administration of 10.2 mCi F18-FDG. FINDINGS: HEAD/NECK: No abnormal FDG localization. CHEST: Redemonstration of a mass in the left upper lobe which currently measures 2.8 x 1.[address] used for attenuation correction. Previously, this lesion was reported to measure 2.0 x 1.3 cm. Currently, the maximum SUV is 5.8. Previously, the maximum SUV was 5.1. Stable post-treatment change with radiation fibrosis involving the right perihilar region and right m ediastinum. No abnormal FDG avidity in the right lung. Stable emphysematous changes in the lung paren chyma. Ground-glass opacities predominantly in the lower lobes are once again noted. ABDOMEN/PELVIS: No abnormal FDG localization. OSSEOUS STRUCTURES: No abnormal FDG localization. There is nonspecific FDG localization just lateral to the right greater trochanter which may represen t a focal area of bursitis. Maximum SUV is 5.4. IMPRESSION: 1. Interval progression of a hypermetabolic mass in the left upper lobe. The size has increased. 2. The previously noted hypermetabolic left external iliac lymph node is not appreciated. 3. The previously noted hypermetabolic activity in the neck is also less evident. POS: [facility]
== END 2019-01-22 09:04 | disposition home or self-care (01) ==
LOC: PET 09:03
PROVIDERS: ATTEND Internal Medicine Hematology & Oncology
DX: C34.11 Malignant neoplasm of upper lobe, right bronchus or lung (principal); R91.8 Other nonspecific abnormal finding of lung field
CPT/HCPCS: 78815; A9552

== ENCOUNTER 2019-07-02 09:44 | Outpatient (CLI) | payer MEDICARE, MEDICAID ==
--- NOTE | 2019-07-02 13:17 | PET ---
Radionucleotide PET scan with CT attenuation correction HISTORY: Lung cancer right upper lobe. Restaging. COMPARISON: 10/30/2018. And 01/22/2019. FINDINGS: Physiologic uptake of radiotracer throughout the enteric system and along each urinary trac t. Peripheral nodule in the left upper lobe has decreased in size. Now 1.1 cm diameter. Maximum SUV now 2.0 (previously 7.2). Healing fracture of the posterior aspect of the right seventh rib shows increased uptake maximum SUV 4.3. There is callus formation. No aggressive mass is evident. No other areas of abnormal radiotracer uptake. Parenchymal scarring throughout each lung and other chronic-type findings are stable. Prominent calci fication throughout the arterial structures. IMPRESSION: Left upper lobe lung nodule has decreased in size and is no longer hypermetabolic. No new lesions are demonstrated. Healing fracture posterior right seventh rib. Atherosclerosis
== END 2019-07-02 09:45 | disposition home or self-care (01) ==
LOC: PET 09:44
PROVIDERS: ATTEND Internal Medicine Hematology & Oncology
DX: C34.11 Malignant neoplasm of upper lobe, right bronchus or lung (principal); R91.1 Solitary pulmonary nodule; I70.0 Atherosclerosis of aorta; S22.31XD Fracture of one rib, right side, subsequent encounter for fracture with routine healing
CPT/HCPCS: 78815; A9552

== ENCOUNTER 2020-01-11 08:56 | Outpatient (CLI) | payer MEDICARE, MEDICAID ==
[2020-01-11 09:32] LABS: Estimated GFR-MDRD - POC Greater than 90
--- NOTE | 2020-01-11 11:43 | CT ---
CT CHEST AND ABDOMEN AND PELVIS WITH IV CONTRAST: Date: 01/11/2020 INDICATION: Lung cancer. Restaging. Comparison made to PET CT of 01/22/2019 and 07/02/2019. FINDINGS: CT CHEST: The mass in the left lung apex is again seen. It continued. It continues to decrease in size when com pared to the prior studies. It is measured at 1.2 cm x 0.8 cm in the axial plane today. Measurements from 07/02/2019 were recorded at 1.1 x 1.1 cm axial dimension. Lungs again show severe chronic lung change. Fibrotic stranding, emphysematous change with interlobar emphysema. Peripheral honeycombing throughout both lungs and hazy ground-glass opacity throughout kortney th lungs again noted. There is a focal area of parenchymal opacity in the left apical region today wh ich is more prominent than on prior study. This is just posterior to the above mentioned nodule. This could represent acute infiltrate superimposed on chronic change. The dense atelectasis in the right perihilar region involving right upper, middle, and lower lobes wi th air bronchograms and lung consolidation is again seen. This may represent post radiation change an d this finding is stable. Calcified paratracheal and mediastinal lymph nodes again noted. No new adenopathy. No axillary adenop athy. Osseous structures unremarkable. IMPRESSION: 1. Continued decrease in size of the left apical mass as described above. 2. Severe chronic lung changes are again noted. A new area of focal opacity in the left apical regio n is decreased above. This should be followed up to confirm stability or resolution. 3. Otherwise, the severe chronic lung changes as described above appear stable. 4. The mediastinal lymph nodes appear stable with no new adenopathy. CT ABDOMEN AND PELVIS: Liver, spleen, and pancreas are unremarkable. Post cholecystectomy change. Stomach and duodenum unrem arkable. Adrenal glands normal. Kidneys unremarkable. A right renal cyst is stable. Small and large bowel loops unremarkable. Aorta shows atherosclerotic calcification with nonspecific lymph nodes in the periaortic region which are unchanged. These do not appear pathologic. Images through the pelvis are unremarkable. Unremarkable uterus and adnexa and urinary bladder. Osseous structures unremarkable. IMPRESSION: No acute findings on CT abdomen and pelvis. POS: [facility]
[2020-01-11] MEDS ORDERED: Iopamidol-370 76% 500 ML 1 ML ONE (13:26)
== END 2020-01-11 08:57 | disposition home or self-care (01) ==
LOC: BICCT 08:56
PROVIDERS: ATTEND Internal Medicine Hematology & Oncology
DX: C34.11 Malignant neoplasm of upper lobe, right bronchus or lung (principal); R91.8 Other nonspecific abnormal finding of lung field; J43.9 Emphysema, unspecified
CPT/HCPCS: 71260; 74177; 82565

== ENCOUNTER 2020-07-18 09:37 | Outpatient (CLI) | payer MEDICARE, MEDICAID ==
[2020-07-18 09:57] LABS: Estimated GFR-MDRD - POC Greater than 90
--- NOTE | 2020-07-18 10:47 | CT ---
CHEST CT WITH CONTRAST ABDOMEN CT WITH CONTRAST PELVIC CT WITH CONTRAST: HISTORY: Lung cancer. Malignant neoplasm of the right upper lobe and bronchus. Correlation: Pet imaging 07/02/2019. COMPARISON: 01/11/2020. FINDINGS: Chest CT: Mediastinum: Stable abnormal soft tissue density in the right hilum and subcarinal region suggesting post treatment change. Stable calcified mediastinal lymphadenopathy. Aorta: Stable atherosclerosis. There is vascular occlusion of the right common iliac artery, internal iliac artery and external iliac artery due to atherosclerotic disease. Heart: Normal heart size. Trace pericardial fluid. Trachea and central bronchi: Patent. Pleural spaces: No significant fluid. Right lung: Stable posttreatment changes involving the right lung. Stable honeycombing of the right l ower lobe. Stable nodule in the right lower lobe abutting the right hemidiaphragm measuring 1.2 x 1.4 cm. Previously exam, this nodule measured 1.4 x 1.4 cm. Left lung:. Redemonstration of a left apical mass, currently measuring 1.5 x 0.8 cm, presumably measu ring 1.3 x 0.8 cm. On the PET CT scan of the lesion measured 1.1 x 1.1 cm. There is some adjacent lung parenchymal change compatible with scarring. There does appear to be a new more focal nodular d ensity in the medial left lung apex, measuring 1.1 x 0.8 cm. This opacity was not present on the previous CT nor was it present on the CT used for attenuation correction on the PET scan performed in June 2019. Additional chronic lung parenchymal changes are identified with scattered septal thickening, interstitial edema and mild honeycombing. Pneumothorax: None. Abdomen CT: Gallbladder: Surgically absent. Portal vein: Patent. Liver: Appropriate enhancement. Spleen: Appropriate enhancement. Pancreas: Appropriate enhancement. Adrenal glands: Appropriate enhancement. Lymphadenopathy: No gastrohepatic, retrocrural or periportal lymphadenopathy. Kidneys: Stable exophytic hypodensity emanating from the right renal cortex compatible with a 1.2 cm cyst. Symmetric enhancement of the kidneys. Bilaterally no obstructive uropathy. Mesentery: No mass, lymphadenopathy, free air or free fluid. Alimentary canal: Gastric mucosa, duodenum and multiple normal caliber small bowel loops. Normal ileo cecal junction. Normal caliber appendix. Contrast and fecal material in a nondistended, nondilated colon. Pelvis CT: Uterus and adnexal structures are markable. No pelvic mass, lymphadenopathy, free air or free fluid. Presacral fat is preserved. Unremarkable urinary bladder. Osseous structures:No lytic or blastic lesions within the osseous structures. Healed posterior right seventh rib fracture. IMPRESSION: 1. Stable posttreatment changes throughout the lung parenchyma. Stable nodularity in the right lower lobe abutting the right hemidiaphragm. 2. Increased soft tissue density in the left lung apex which may represent progression of treatment c hange. However, the possibility of recurrent/residual malignancy cannot be entirely excluded. PET imaging may be beneficial. Transcribed Date/Time: 07/18/2020 11:03 AM
[2020-07-18] MEDS ORDERED: Iopamidol-370 76% 500 ML 1 ML ONE (12:09)
== END 2020-07-18 09:38 | disposition home or self-care (01) ==
LOC: BICCT 09:37
PROVIDERS: ATTEND Internal Medicine Hematology & Oncology
DX: C34.11 Malignant neoplasm of upper lobe, right bronchus or lung (principal); R91.8 Other nonspecific abnormal finding of lung field; M79.89 Other specified soft tissue disorders
CPT/HCPCS: 71260; 74177; 82565; Q9967

== ENCOUNTER 2020-07-26 11:09 | Outpatient (CLI) | payer MEDICARE, MEDICAID ==
--- NOTE | 2020-07-26 14:36 | PET ---
PET CT: HISTORY: A 60-year-old female with lung cancer and new nodule. Malignant neoplasm of upper lobe right bronchu s of lung. The patient had chemoradiation therapy over a year ago. TECHNIQUE: PET scanning with CT attenuation correction was performed from the base of the brain through the prox imal thighs following the intravenous administration of 11.7 mCi [id number] in the right antecubital fossa. COMPARISON: 07/02/2019. CORRELATION: CT chest, abdomen, and pelvis of 07/18/2020. FINDINGS: No abnormal FDG localization is seen in the soft tissue density in the left lung apex noted on the CT scan. There is mild uptake in the region of radiation therapy in the right medial lung. No aristeo hypermetabolism is seen in the neck, chest, abdomen, pelvis, axilla, or inguinal regions. No hypermetabolic pulmonary nodules, liver, adrenal, or skeletal lesions are seen. There is physiologic activity in the GI and tracks and the visualized portions of the brain. The CT scan used for attenuation correction demonstrates no evidence of pleural effusions or ascites. IMPRESSION: No evidence of tumor recurrence or metastatic disease. POS: [facility]
== END 2020-07-26 11:10 | disposition home or self-care (01) ==
LOC: PET 11:09
PROVIDERS: ATTEND Internal Medicine Hematology & Oncology
DX: C34.90 Malignant neoplasm of unspecified part of unspecified bronchus or lung (principal)
CPT/HCPCS: 78815; A9552

== ENCOUNTER 2021-04-04 09:07 | Outpatient (CLI) | payer MEDICARE, MEDICAID ==
[2021-04-04 10:06] LABS: Estimated GFR-MDRD - POC Greater than 90
[2021-04-04] MEDS ORDERED: Iopamidol 370 76% 100 ML VIAL ONE (16:06)
== END 2021-04-04 09:08 | disposition home or self-care (01) ==
LOC: CT 09:07
PROVIDERS: ATTEND Internal Medicine Hematology & Oncology
DX: C34.11 Malignant neoplasm of upper lobe, right bronchus or lung (principal); I70.8 Atherosclerosis of other arteries
CPT/HCPCS: 71260; 74177; 82565

== ENCOUNTER 2022-04-09 09:43 | Outpatient (CLI) | payer OTHER ==
[2022-04-09] MEDS ORDERED: Iopamidol-370 76% 500 ML 1 ML ONE (14:30)
== END 2022-04-09 09:44 | disposition home or self-care (01) ==
LOC: BICCT 09:43
PROVIDERS: ATTEND Internal Medicine Hematology & Oncology
DX: C34.11 Malignant neoplasm of upper lobe, right bronchus or lung (principal); J98.4 Other disorders of lung; R59.0 Localized enlarged lymph nodes; J43.9 Emphysema, unspecified; I70.0 Atherosclerosis of aorta; N28.1 Cyst of kidney, acquired; I74.5 Embolism and thrombosis of iliac artery; M47.817 Spondylosis without myelopathy or radiculopathy, lumbosacral region
CPT/HCPCS: 71260; 74177; 82565; Q9967

== ENCOUNTER 2022-04-17 12:30 | Outpatient (CLI) | payer OTHER | END 2022-04-17 12:31 | disposition home or self-care (01) | LOC: PET 12:30 | PROVIDERS: ATTEND Internal Medicine Hematology & Oncology | DX: C34.11 Malignant neoplasm of upper lobe, right bronchus or lung (principal); R91.8 Other nonspecific abnormal finding of lung field; R91.1 Solitary pulmonary nodule | CPT/HCPCS: 78815; A9552 ==

== ENCOUNTER 2023-08-20 08:02 | Outpatient (CLI) | payer MEDICARE, OTHER | END 2023-08-20 08:03 | disposition home or self-care (01) | LOC: BICCT 08:02 | PROVIDERS: ATTEND Internal Medicine Hematology & Oncology | DX: C34.90 Malignant neoplasm of unspecified part of unspecified bronchus or lung (principal); R91.8 Other nonspecific abnormal finding of lung field | CPT/HCPCS: 71260; 74177; 82565 ==

== ENCOUNTER 2024-04-16 10:15 | Outpatient (CLI) | payer MEDICARE, MEDICAID | END 2024-04-16 10:16 | disposition home or self-care (01) | LOC: PET 10:15 | PROVIDERS: ATTEND Internal Medicine Hematology & Oncology | DX: C34.12 Malignant neoplasm of upper lobe, left bronchus or lung (principal); R91.8 Other nonspecific abnormal finding of lung field; J84.10 Pulmonary fibrosis, unspecified | CPT/HCPCS: 78815; A9552 ==

== ENCOUNTER 2024-04-23 17:24 | Observation (INO) | payer MEDICARE, MEDICAID ==
[~2024-04-23 17:24] MED LIST changes: -ISOVUE-370 76%-LOCM 1 ML ONE; +Iopamidol-370 76% 500 ML MDV (1 ML CHARGE) ONE
[2024-04-23 18:10] LABS: #Basophils 0.05 10x3/uL (0.0-0.2); %Eosinophils 1.6 % (0.0-10.0); %Monocytes 5.5 % (0.0-10.0); %Neutrophils 59.3 % (42.0-75.0); Hematocrit 37.3 % (36.0-47.0); Hemoglobin 11.4 g/dL (12.0-16.0); Mean Corpuscular HGB CONC 30.6 g/dL (32.0-36.0); Mean Corpuscular Hemoglobin 26.5 pg (27.0-31.0); Mean Corpuscular Volume 86.5 fL (78.0-98.0); Mean Platelet Volume 9.8 fL (7.4-10.4); Platelet Count 139 10x3/uL (130-400); RBC Distribution Width 18.3 % (11.5-14.5); Red Blood Cell (RBC) Count 4.31 mill/uL (4.20-5.40)
[2024-04-23 18:32] LABS: ALT (SGPT) 6 U/L (8-55); AST (SGOT) 12 U/L (5-34); Albumin 3.6 g/dL (3.4-4.8); Alkaline Phosphatase 103 U/L (40-110); Anion Gap 13 mmol/L (10-20); BUN (Urea Nitrogen) 10 mg/dL (9.8-20.1); Bilirubin, Total 0.2 mg/dL (0.2-1.2); Calc. Creatinine Clearance 0 mL/min (70-130); Calcium 9.9 mg/dL (7.8-10.44); Carbon Dioxide 26 mmol/L (23-31); Chloride 105 mmol/L (98-107); Estimated GFR 97; Globulin 5.4 g/dL (2.4-3.5); Glucose 95 mg/dL (80-115); Potassium 4.7 mmol/L (3.5-5.1); Sodium 139 mmol/L (136-145)
[2024-04-23] MEDS ORDERED: Aspirin Chewable 81 MG TAB ONE (21:27)
[2024-04-23] MEDS ORDERED: hydrALAZINE 20 MG/ML VIAL SLOW IVP PRN (21:42)
[2024-04-24] MEDS ORDERED: Ipratropium/Albuterol 3 ML NEB NEB PRN (00:48)
[2024-04-24 01:45] VITALS: BMI 24.6
[2024-04-24 04:59] LABS: Influenza A by NAA Not Detected (NotDetected); Influenza B by NAA Not Detected (NotDetected); SARS-CoV-2 NAA Rapid Test Not Detected (NotDetected)
[2024-04-24 05:14] LABS: Anion Gap 11 mmol/L (10-20); BUN (Urea Nitrogen) 9 mg/dL (9.8-20.1); Calc. Creatinine Clearance 84 mL/min (70-130); Calcium 9.1 mg/dL (7.8-10.44); Carbon Dioxide 25 mmol/L (23-31); Cardiac Risk 5.3 (Less than 4.5); Chloride 105 mmol/L (98-107); Cholesterol 170 mg/dl (< 200 Desired); Estimated GFR 100; Glucose 88 mg/dL (80-115); HDL Cholesterol 32 mg/dL (>60 Neg Risk); LDL Cholesterol, Calculated 114 mg/dL; Potassium 3.6 mmol/L (3.5-5.1); Sodium 137 mmol/L (136-145); Triglycerides 119 mg/dL (Less than 150)
[2024-04-24 05:23] LABS: #Basophils 0.03 10x3/uL (0.0-0.2); %Basophils 0.7 % (0.0-1.0); %Eosinophils 3.1 % (0.0-10.0); %Lymphocytes 37.7 % (21.0-51.0); %Monocytes 7.2 % (0.0-10.0); %Neutrophils 51.1 % (42.0-75.0); Hematocrit 33.2 % (36.0-47.0); Hemoglobin 10.6 g/dL (12.0-16.0); Mean Corpuscular HGB CONC 31.9 g/dL (32.0-36.0); Mean Corpuscular Hemoglobin 26.8 pg (27.0-31.0); Mean Corpuscular Volume 84.1 fL (78.0-98.0); Mean Platelet Volume 10.3 fL (7.4-10.4); Platelet Count 129 10x3/uL (130-400); RBC Distribution Width 17.9 % (11.5-14.5); Red Blood Cell (RBC) Count 3.95 mill/uL (4.20-5.40)
[2024-04-24] MEDS: Aspirin 81 mg Enteric Coated Tablet PO SCH (07:50)
[2024-04-24 10:37] LABS: Hemoglobin A1c 5.7 % (4.0-6.0)
[2024-04-24 15:44] VITALS: BP 122/81; TEMP 98.6
[2024-04-24] MEDS ORDERED: Atorvastatin Calcium 40 MG TAB PO SCH (21:00)
[2024-04-27] MEDS ORDERED: FLU (Fluad Triv) TS24-25 (65UP)/MF59C/PF 45 MCG/0.5 ML Syringe IM ONE (00:30)
== END 2024-04-24 16:15 | disposition home or self-care (01) ==
LOC: ERS 17:24 → 2SE 21:56
PROVIDERS: ADMIT Family Medicine; ATTEND Family Medicine
PROC: B24BZZZ Ultrasonography of Heart with Aorta (ICD-10-PCS; principal; 2024-04-23)
DX: H53.8 Other visual disturbances (principal); I77.71 Dissection of carotid artery; J44.9 Chronic obstructive pulmonary disease, unspecified; C34.90 Malignant neoplasm of unspecified part of unspecified bronchus or lung; F17.210 Nicotine dependence, cigarettes, uncomplicated; Z79.899 Other long term (current) drug therapy
CPT/HCPCS: 0240U; 70496; 70498; 70551; 71045; 80048; 80053; 80061; 83036; 83605; 85025 ×2; 93005; 93306; 96372; 99285; G0378 ×2; J1642; Q9967; 36415

== ENCOUNTER 2024-06-03 15:37 | Emergency (ER) | payer MEDICARE, MEDICAID ==
[2024-06-03] MEDS ORDERED: Oxymetazoline HCl 0.05% (30 ML BOT) ONE (17:37)
[2024-06-03] MEDS ORDERED: Ibuprofen 200 MG TAB ONE (19:08)
[2024-06-03] MEDS ORDERED: Cephalexin 250 MG CAP ONE (20:01)
== END 2024-06-03 21:00 | disposition home or self-care (01) ==
LOC: ERS 15:37
DX: R04.0 Epistaxis (principal); F17.210 Nicotine dependence, cigarettes, uncomplicated
CPT/HCPCS: 30901; 99282